=== PATIENT | female | born 1995 | race African-American/Black ===

== ENCOUNTER 2025-01-01 21:57 | Emergency (ER) | payer MEDICAID ==
[~2025-01-01] VITALS: Ht 161.3 cm; Wt 60.5 kg
[2025-01-01 22:25] VITALS: TEMP 98.205296
[2025-01-01 23:05] LABS: PLATELET COUNT (AUTO) 282 K/uL (150-450); RED BLOOD CELL COUNT(AUTO) 4.02 MIL/uL (4.00-5.20); RED CELL DISTRIBUTION WIDTH 12.2 % (11.5-14.5); WHITE BLOOD COUNT (AUTO) 5.5 K/uL (4.5-11.0)
[2025-01-01 23:11] LABS: CALCIUM, TOTAL 9.5 mg/dL (8.8-10.5); CREATININE 0.72 mg/dL (0.60-1.30); GLOMERULAR FILTR. RATE CALC > 60 mL/min (>60); GLUCOSE,RANDOM 100 mg/dL (70-110); SODIUM SERUM 140 mmol/L (136-145); UREA NITROGEN, BLOOD 15 mg/dL (7-18)
[2025-01-01 23:47] VITALS: BP 121/67; PULSE 88; RESP 15; O2SAT 99
== END 2025-01-02 02:27 | disposition home or self-care (01) ==
LOC: EMS 22:00
DX: R00.2 Palpitations (principal); E03.9 Hypothyroidism, unspecified
CPT/HCPCS: 80048; 83735; 84443; 84703; 85025; 93005; 99284